=== PATIENT | female | born 1970 | race Caucasian/White ===

== ENCOUNTER 2025-01-13 00:20 | Emergency (ER) | payer MEDICAID ==
[~2025-01-13] VITALS: Ht 170.2 cm; Wt 82.2 kg
[2025-01-13 00:32] VITALS: TEMP 37; O2SAT 96
[2025-01-13] MEDS ORDERED: ALPRAZOLAM 0.5 MG TABLET PO ONE (00:45)
[2025-01-13 01:02] LABS: BASOPHILS % 0.6 % (0.0-2.0); EOSINOPHILS % 3.4 % (0.0-5.0); HEMATOCRIT. 35.2 % (36.0-48.0); HEMOGLOBIN. 11.6 g/dL (12.0-16.0); LYMPHOCYTES % 35.8 % (20.0-50.0); MEAN PLATELET VOLUME 8.0 fl (7.4-10.4); MONOCYTES % 5.0 % (2.0-8.0); NEUTROPHILS % 55.2 % (40.0-76.0); PLATELET 297 x1000/uL (130-400); RED BLOOD CELL COUNT 4.50 mill/uL (4.2-5.4); RED CELL DISTRIBUTION WIDTH 15.1 % (11.6-14.6)
[2025-01-13] MEDS: ALPRAZOLAM 0.25 MG TABLET PO NR (01:12)
[2025-01-13] MEDS: LISINOPRIL 10MG TABLET PO ONE (01:13)
[2025-01-13 01:20] LABS: CREATININE 0.8 mg/dL (0.6-1.0); UREA NITROGEN BLOOD 12 mg/dL (9-23)
[2025-01-13 01:21] LABS: ETHANOL BLOOD < 10 mg/dL (<10); TROPONIN I HIGH SENSITIVITY < 4 ng/L (3.0-34)
[2025-01-13 02:34] VITALS: BP 123/82; PULSE 72; RESP 16; O2SAT 98
== END 2025-01-13 02:43 | disposition home or self-care (01) ==
LOC: ER 00:32
DX: R00.2 Palpitations (principal); R00.0 Tachycardia, unspecified; F41.0 Panic disorder [episodic paroxysmal anxiety]; E11.9 Type 2 diabetes mellitus without complications; E78.5 Hyperlipidemia, unspecified; I10 Essential (primary) hypertension
CPT/HCPCS: 36415; 71045; 80048; 80320; 84484; 85025; 93005; 99285; G0480